=== PATIENT | female | born 1970 | race Caucasian/White ===

== ENCOUNTER 2019-03-27 07:44 | Outpatient (CLI) | payer OTHER, SELFPAY ==
--- NOTE | ~2019-03-27 | MR_ITS ---
EXAMINATION: MR hand RT wo con DATE: 03/27/2019 09:01 INDICATION: Right hand pain. TECHNIQUE: Magnetic resonance imaging (MRI) of the right hand was performed without intravenous contr ast. Sequences included axial, coronal, and sagittal T1-weighted FSE and T2-weighted FS FSE. COMPARISON: Right hand radiographs 02/13/2019 FINDINGS: Bone alignment is normal. No fracture. Increased bone marrow signal intensity in diaphysis of first metacarpal on some sequences is most likely incomplete fat saturation. There is mild osteoar thritis of first interphalangeal joint. The extensor tendons are normal. The flexor tendons and pulle ys are normal. IMPRESSION: 1. Mild osteoarthritis of first interphalangeal joint. Reviewed, dictated and finalized at location A. TY CORONER INVESTIGATOR
== END 2019-03-27 07:45 | disposition home or self-care (01) ==
PROVIDERS: PCP Family Medicine; Visit Provider Orthopaedic Surgery
DX: M79.641 Pain in right hand (principal); M19.041 Primary osteoarthritis, right hand
CPT/HCPCS: 73218

== ENCOUNTER 2019-04-03 06:36 | Outpatient (CLI) | payer OTHER, SELFPAY ==
--- NOTE | ~2019-04-03 | MR_ITS ---
EXAMINATION: MR wrist RT wo con DATE: 04/03/2019 07:52 INDICATION: Right wrist pain. TECHNIQUE: Magnetic resonance imaging (MRI) of the right wrist was performed without intravenous cont rast. Sequences performed include axial PD-weighted FSE and PD-weighted FS FSE, coronal PD-weighted F S FSE and T1-weighted SE, and sagittal PD-weighted FS FSE and PD-weighted FSE. COMPARISON: Right hand radiographs dated 02/13/2019 and right hand MRI dated 03/27/2019 FINDINGS: Intrinsic ligaments: The scapholunate and lunotriquetral ligaments are normal. Triangular fibrocartilage complex (TFCC): Linear increased signal along the proximal surface of the central fiber cartilaginous disc of the tri angular fibrocartilage complex consistent with at least partial tear. More amorphous mild increased s ignal at the dorsal radioulnar ligament and at the ulnar styloid attachment of the triangular fibroca rtilage complex consistent with additional partial tears. The volar radioulnar ligament is normal as is the ulnar triquetral ligament and meniscal homologue. Tear along the ulnar side of the extensor ca rpi ulnaris subsheath allowing palmar subluxation of the extensor carpi ulnaris tendon across the rim of the ECU groove and over the tip of the ulnar styloid process. Extensor wrist: Extensor carpi ulnaris tendon appears normal aside from the previous noted palmar subluxation. The re mainder extensor tendons of the wrist are normal. No tenosynovitis. Flexor wrist: The flexor tendons of the wrist are normal. No abnormality in the carpal tunnel with normal median n erve. Guyon's canal: Guyon's canal including the ulnar nerve and artery are normal. Bones/other: Minimal dorsal subluxation of the ulna at the distal radioulnar joint. Alignment is otherwise normal. Normal marrow signal. No fracture, erosions, avascular necrosis or pathologic marrow replacing proce ss. Mild osteoarthritis at the triscaphe joint with small partial-thickness cartilage loss and chondr al surface regularity along the articular surface of the distal pole of scaphoid. Joint spaces and ca rtilage appear otherwise normal. IMPRESSION: 1. Partial tears of components of the triangular fiber cartilage complex including the ulnar styloid attachment, dorsal radial ulnar ligament and central fiber cartilaginous disc with likely secondary m inimal dorsal subluxation of the ulna at the distal radioulnar joint. 2. Tear of the ulnar side of the extensor carpi ulnaris subsheath allowing volar subluxation of the o therwise normal extensor carpi ulnaris tendon which is draped along the ulnar rim of the ECU groove. 3. Mild osteoarthritis at the triscaphe joint. Reviewed, dictated and finalized at location A. EMENT REQUEST CLERK IMPRESSION: 1. Partial tears of components of the triangular fiber cartilage complex includ ing the ulnar styloid attachment, dorsal radial ulnar ligament and central fibe r cartilaginous disc with likely secondary minimal dorsal subluxation of the ul na at the distal radioulnar joint. 2. Tear of the ulnar side of the extensor carpi ulnaris subsheath allowing vola r subluxation of the otherwise normal extensor carpi ulnaris tendon which is dr aped along the ulnar rim of the ECU groove. 3. Mild osteoarthritis at the triscaphe joint.
== END 2019-04-03 06:37 | disposition home or self-care (01) ==
LOC: ANHIMG 06:42
PROVIDERS: PCP Family Medicine; Visit Provider Orthopaedic Surgery
DX: M19.031 Primary osteoarthritis, right wrist (principal)
CPT/HCPCS: 73221

== ENCOUNTER → 2020-11-30 14:50 | Outpatient (CLI) | payer OTHER, SELFPAY ==
--- NOTE | ~2020-11-30 | MM_ITS ---
EXAMINATION: MM screening [facility] BI [facility] [place] HISTORY: Screening mammogram TECHNIQUE: Craniocaudal and mediolateral oblique 3-D tomosynthesis images were obtained and synthetic 2-D images were generated. CAD analysis was submitted and interpreted. COMPARISON: 07/04/2017, 12/31/2014, 01/03/2014 BREAST PARENCHYMAL COMPOSITION: The breasts are heterogeneously dense, which may obscure small masses . FINDINGS: There is no evidence of suspicious mass, calcification, or architectural distortion to sugg est malignancy in either breast. There has been no suspicious interval change. IMPRESSION: 1. No mammographic evidence of malignancy. 2. Recommend routine screening mammography in one year. BI-RADS Category 1: Negative Reviewed, dictated and finalized at location A.
== END ==
PROVIDERS: PCP Family Medicine; Visit Provider Obstetrics & Gynecology
DX: Z12.31 Encounter for screening mammogram for malignant neoplasm of breast (principal)
CPT/HCPCS: 77063; 77067

== ENCOUNTER 2020-12-28 01:37 | Day surgery (SDC) | payer OTHER, SELFPAY ==
[2020-12-11 13:17] VITALS: BMI 22.6
[2020-12-28 08:07] VITALS: BP 120/99; PULSE 106; RESP 16; TEMP 37.2; O2SAT 100
[2020-12-28] MEDS: LACTATED RINGERS 1,000 ML 150 ML IV CONT (08:08)
--- NOTE | 2020-12-28 08:14 | P.PNAN_ITS ---
Anes - Initial Pre Proc Eval Procedure: Operation Date: 12/28/20 09:15 Proposed Procedures p Screening Colonoscopy - Migue Rodriguez MD Date/Time: 12/28/20 08:14 Surgeon: Migue Rodriguez MD Pre Op Diagnosis: neoplasm screening Patient Data Age: 50 Gender: F Height: 1.57 m Weight: 56.3 kg Last Vital Signs Temp 37.2 C 12/28/20 08:07 Pulse 106 H 12/28/20 08:07 Resp 16 12/28/20 08:07 BP 120/99 H 12/28/20 08:07 Pulse Ox 100 12/28/20 08:07 Allergies Allergy/AdvReac Type Severity Reaction Status Date / Time fluoxetine Allergy Unknown Tremor Verified 12/28/20 08:05 Home Medications Medication Instructions Recorded Confirmed Type norethindrone 1 mg-ethinyl 1 tablet PO DAILY 03/13/19 12/28/20 History estradiol 20 mcg (21)-iron 75 mg (7) tablet multivitamin 1 tablet PO DAILY 03/20/19 12/28/20 History vit C 250 mg-vit E 90 mg-zinc 40 1 tablet PO BID 03/20/19 12/28/20 History mg-copper 1 [id number] capsule Patient hx anesthesia problems: none Family hx anesthesia problems: none Results Review: All pre-operative results and documents have been reviewed as part of the pre-operative evaluation. [facility] [place] Past Medical History Medical History Anxiety H/O supraventricular tachycardia Surgical History Surgical History delivery delivered 03/2002 Chris History of gynecological procedure Ablation, radio frequency 1997 [place] teeth removed 1989 Family History Family History Father Hypertension Family history of coronary artery disease Mother Family history of hypothyroidism Social History Social History Smoking status: Never smoker Second hand tobacco smoke exposure: No Alcohol intake: never Substance use: never Substance use type: does not use Living arrangements: with family Additional living arrangements comments: & Daughter 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 Informed Consent: The patient's anesthetic plan and its attendant risks and benefits were discussed with the patient/family/POA. Questions were solicited and answers provided to the satisfaction of the patient/family/POA.
--- NOTE | 2020-12-28 08:45 | PM.HPGS ---
History of Present Illness History of Present Illness Consent: Risks, benefits, and alternatives have been discussed and questions answered. Patient agrees to proceed with procedure. Chief complaint: neoplasm screening Narrative: Ines Curiel is a 50 year old female here for first screening colonoscopy Review of Systems Constitutional: Constitutional: Denies headache(s) and Denies weakness Eyes: Eyes: Denies blurry vision ENT: Reports Normal hearing present, Denies headache(s) and Denies neck pain Cardiovascular: Cardiovascular: Denies chest pain and Denies dyspnea Respiratory: Respiratory: Denies dyspnea Gastrointestinal: Gastrointestinal: Reports no additional gastrointestinal complaints Genitourinary: Genitourinary: Denies dysuria Musculoskeletal: Musculoskeletal: Denies neck pain Integumentary/Breasts: Skin/Breast: Denies dry skin Neurologic: Reports Normal hearing present, Denies headache(s) and Denies weakness Psychiatric: Psychiatric: Denies anxiety Endocrine: Endocrine: Denies change in body appearance Hematologic/Lymphatic: Hematologic/Lymphatic: Denies easy bleeding Allergic/Immunologic: Allergic/Immunologic: Denies urticaria PMF Past Medical History Medical History (Updated 12/28/20 @ 08:46 by Migue Rodriguez MD) Anxiety Colon cancer screening H/O supraventricular tachycardia Surgical History Surgical History delivery delivered 03/2002 Chris History of gynecological procedure Ablation, radio frequency 1997 [place] teeth removed 1989 Family History Family History Father Hypertension Family history of coronary artery disease Mother Family history of hypothyroidism Social History Social History Smoking status: Never smoker Second hand tobacco smoke exposure: No Alcohol intake: never Substance use: never Substance use type: does not use Living arrangements: with family Additional living arrangements comments: & Daughter 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 Gender identity (if verbalized by the patient): Female Spiritual care concerns: No Meds Home Medications and Allergies Home Medications Medication Instructions Recorded Confirmed Type norethindrone 1 mg-ethinyl 1 tablet PO DAILY 03/13/19 12/28/20 History estradiol 20 mcg (21)-iron 75 mg (7) tablet multivitamin 1 tablet PO DAILY 03/20/19 12/28/20 History vit C 250 mg-vit E 90 mg-zinc 40 1 tablet PO BID 03/20/19 12/28/20 History mg-copper 1 [id number]-mxryhz capsule Allergies Allergy/AdvReac Type Severity Reaction Status Date / Time fluoxetine Allergy Unknown Tremor Verified 12/28/20 08:05 Vital Signs Vital Signs - 24 hr 12/28/20 08:07 Temperature 98.9 F Pulse Rate 106 H Respiratory Rate 16 Blood Pressure 120/99 H Pulse Oximetry 100 Exam Const: General: comfortable and no acute distress HENMT: General nose exam: Normal nares present Eyes: General: appearance normal, both eyes and all related structures Neck: Neck: no JVD Resp: Auscultation: clear to auscultation bilaterally Cardio: Rate: regular rate Rhythm: regular rhythm GI: Inspection: non-distended GI Palp: Yes Soft to palpation Skin: General skin exam: normal color Neuro: General: gait normal Speech: normal speech Extrem: General: normal to inspection Psych: Mental Status: mental status grossly normal Assessment and Plan Assessment and plan (1) Colon cancer screening: Code(s): Z12.11 - Encounter for screening for malignant neoplasm of colon Status: Acute Assessment and Plan: colonoscopy
[2020-12-28 09:05] VITALS: BP 112/65; PULSE 87; RESP 15; O2SAT 99
[2020-12-28 09:15] VITALS: BP 137/84; PULSE 81; RESP 18; O2SAT 100
[2020-12-28 09:25] VITALS: BP 120/69; PULSE 79; RESP 14; O2SAT 100
== END 2020-12-28 09:45 | disposition home or self-care (01) ==
PROVIDERS: PCP Family Medicine; Visit Provider Internal Medicine Gastroenterology
PROC: 0DJD8ZZ Inspection of Lower Intestinal Tract, Via Natural or Artificial Opening Endoscopic (ICD-10-PCS; CPT 45378; principal; 2020-12-28 09:15)
DX: Z12.11 Encounter for screening for malignant neoplasm of colon (principal); K57.30 Diverticulosis of large intestine without perforation or abscess without bleeding; K64.8 Other hemorrhoids; F41.9 Anxiety disorder, unspecified; I47.1 Supraventricular tachycardia
CPT/HCPCS: 45378; J2704; J7120

== ENCOUNTER → 2021-06-16 15:31 | Outpatient (CLI) | payer OTHER, SELFPAY ==
--- NOTE | ~2021-06-16 | XR_ITS ---
EXAMINATION: XR lumbar spine 2-3V DATE: 06/16/2021 15:51 INDICATION: Right-sided low back pain TECHNIQUE: Anteroposterior and lateral views of the lumbar spine, and cone-down lateral view of the l umbosacral junction were obtained. COMPARISON: None. FINDINGS: Bone alignment is normal. There is no fracture. The vertebral body heights and intervertebr al disc spaces are maintained. Small degenerative osteophytes project from the anterior endplates of multiple vertebral bodies. There is a moderate volume of colonic stool. IMPRESSION: 1. No acute osseous abnormality. Reviewed, dictated and finalized at location F.
== END ==
PROVIDERS: PCP Family Medicine; Visit Provider Family Medicine
DX: M54.30 Sciatica, unspecified side (principal)
CPT/HCPCS: 72100

== ENCOUNTER 2021-08-10 00:03 | Day surgery (SDC) | payer OTHER, SELFPAY ==
[2021-08-03 13:08] VITALS: BMI 23.0
--- NOTE | 2021-08-03 13:18 | PC.NURSE ---
Report to the Outpatient Waiting Room, entrance under the green pavilion located off [facility], at time 0600 on date 08/10/21. OR Time: 0730. - You and your visitor will be asked a series of questions to screen for COVID 19 for your protection. - Only one visitor is allowed at this time. - The patient visitor is requested to leave or wait in car when not with patient. - A mask is required within the hospital. Patients may have clear liquids (water, carbonated beverages, clear teas, apple juice) until 3 hours prior to surgery with a maximum of 20 ounces. - No food from midnight until time of surgery Take the following medications with a SIP of water the morning of surgery: LORAZEPAM (IF NEEDED) Medications to discontinue per physician: VITAMINS/SUPPLEMENTS Date to take last dose: 08/06/21 Please no make-up, nail urdu, hairspray, perfume, deodorant, or body powder the day of surgery. No jewelry (including any body piercings) or valuables the day of surgery, leave them at home. Please take a shower or bath the night before, or the morning of, surgery with an antibacterial soap. Wear comfortable, loose fitting clothing. - Jewelry must be removed prior to entering the operating room. Rings and piercings that are not removed may be cut off. - The hospital will not accept responsibility for valuables. - Please leave all valuables, including medications, at home the day of surgery. If you are going home after surgery, a licensed delivery driver/supervisor must drive you home. - NO public transportation without another adult. - We recommend that an adult stay with you for 24 hours following discharge. - We also recommend that you do not drive, make important decision, drink alcoholic beverages, or take any drugs that were not prescribed by your health care provider for at least 24 hours after your discharge time. Follow any additional instructions given to you from your surgeon. If you or anyone in your household have experienced Covid symptoms in the past week, please notify your surgeon or the nurse liaison at the phone number below for possible testing. Telephone instructions given to PT - MARIANNA JONAS and asked if any additional questions and then verbalized understanding. Patient advised to call surgeon office or pre surgery nurse liaison [phone] if any additional questions.
--- NOTE | 2021-08-09 13:11 | P.PNAN_ITS ---
Anes - Initial Pre Proc Eval Procedure: Operation Date: 08/10/21 07:30 Proposed Procedures p Hysteroscopy with Biopsy of Endometrium, Polypectomy - Tree Coulter MD Date/Time: 08/09/21 13:11 Surgeon: Tree Coulter MD Pre Op Diagnosis: Abnormal Uterine Bleeding Patient Data Age: 50 Gender: F Height: 1.6 m Weight: 59 kg Allergies Allergy/AdvReac Type Severity Reaction Status Date / Time fluoxetine AdvReac Unknown Tremor Verified 08/10/21 06:15 Home Medications Medication Instructions Recorded Confirmed Type multivitamin 1 tablet PO DAILY 03/20/19 08/10/21 History vit C 250 mg-vit E 90 mg-zinc 40 1 tablet PO BID 03/20/19 08/10/21 History mg-copper 1 fi-qnukyf-uwrkps capsule (PreserVision AREDS-2) lorazepam 0.5 mg tablet (Ativan) 0.5 mg PO BID PRN anxiety #15 tabs 01/11/21 08/10/21 Rx norethindrone 1.5 mg-ethinyl 1 tablet PO HS 01/11/21 08/10/21 History estradiol 30 mcg(21)/iron 75 mg(7) tablet (Junel FE 1.5/30 (28)) triamcinolone acetonide 55 mcg 1 spray intranasal DAILY 01/11/21 08/10/21 History nasal spray aerosol (Nasacort) Patient hx anesthesia problems: none Family hx anesthesia problems: none Results Review: All pre-operative results and documents have been reviewed as part of the pre- operative evaluation. [facility] Past Medical History Medical History Anxiety Colon cancer screening H/O supraventricular tachycardia Surgical History Surgical History delivery delivered 03/2002 S[place] History of gynecological procedure Ablation, radio frequency 1997 [place] teeth removed 1989 Family History Family History Father Hypertension Family history of coronary artery disease Mother Family history of hypothyroidism Social History Social History Smoking status: Never smoker Second hand tobacco smoke exposure: No Alcohol intake: never Substance use: never Substance use type: does not use Living arrangements: with family Additional living arrangements comments: & Daughter 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 Informed Consent: The patient's anesthetic plan and its attendant risks and benefits were discussed with the patient/family/POA. Questions were solicited and answers provided to the satisfaction of the patient/family/POA.
[2021-08-10 06:09] VITALS: BP 141/76; PULSE 95; RESP 18; TEMP 36.8; O2SAT 100
[2021-08-10] MEDS: LACTATED RINGERS 1,000 ML 30 ML IV CONT ×2 (06:25→09:37)
[2021-08-10] MEDS: ACETAMINOPHEN 500 MG TABLET 1000 MG PO (06:26)
--- NOTE | 2021-08-10 07:10 | WPDHPUPDATE1 ---
History and Physical Update Update Date/Time: 08/10/21 07:10 To insert IUD also during the procedure. History and Physical has been reviewed, including an updated exam of the patient. There are NO changes in the patient's condition. Risks, benefits, and alternatives have been discussed and questions answered. Patient agrees to proceed with procedure.
[2021-08-10 08:21] VITALS: BP 139/82; PULSE 79; RESP 12; O2SAT 100
[2021-08-10] MEDS: fentaNYL CITRATE INJ (*CRX) 100 MCG/2 ML VIAL 25 MCG IV PUSH ×2 (08:40→09:04)
[2021-08-10 08:51] VITALS: BP 140/86; PULSE 82
--- NOTE | 2021-08-10 08:53 | SUR.PHASEII ---
0853- DR. BUSTILLOS TO OUT PT RECOVERY. STATED PT MAY HAVE SOME BLEEDING, PT HAD A FIBROID AND HAD SOME BLEEDING DURING SURGERY. DR. BUSTILLOS SPOKE WITH PT. UPDATED HER ON FINDINGS. VIV PAD CHANGED. PT UP TO RECLINER. DR. BUSTILLOS STATED HE WILL COME SEE HER AFTER HIS NEXT CASE.
[2021-08-10] MEDS: ESTROGENS, CONJUGATED 25 MG/5 ML VIAL IV PUSH (09:15)
[2021-08-10] MEDS: oxyCODONE HCL (*CRX) 5 MG TAB IR PO (09:16)
[2021-08-10 09:21] VITALS: BP 158/84; PULSE 72
--- NOTE | 2021-08-10 09:24 | W.PM.PROC2 ---
Procedure Note - Detailed Date of Procedure 08/10/21 Pre-op Diagnosis Abnormal Uterine Bleeding Post-op Diagnosis Other (Submucous fibroid) Procedure Performed Hysteroscopy D&C, IUD placement Surgeon Tree Coulter MD Anesthesia MAC Indications abnormal uterine bleeding Findings 2 cm submucous fibroid., normal vulva, vagina and cervix. Description of Procedure the patient was taken the operating room. She was prepped and draped in the dorsal lithotomy position after induction of mac anesthesia. A speculum was placed in the vagina. The cervix was grasped with a tenaculum. The cervix was dilated about 1 cm. The hysteroscope was inserted. The intrauterine cavity and endocervix were evaluated. Hysteroscope was withdrawn. A medium-size curette was used to curettage all the surfaces were within the endometrial cavity. the sample was collected on Telfa and sent to pathology. Bleeding began. Her bleeding persisted. The cervix is very soft and there was a tear on the cervix. Sutures were placed there but the bleeding was coming from inside the uterus. It persisted. To manage medically. The IUD was inserted in the usual fashion using a IUD applicator. It was placed at the uterine fundus. Hysteroscope was inserted and was well placed beyond the fibroid. Hysteroscope was removed, the speculum was removed. Tenaculum was removed. The hysteroscope was reinserted and the above findings were noted. Patient tolerated the procedure well. The speculum and tenaculum were removed. She was taken recovery room in stable condition. Sponge lap and needle counts were correct x2. Estimated Blood Loss 250 Drains No Packing No Pathology Yes Complications No immediate complications Condition Stable Disposition PACU
[2021-08-10] MEDS: TRANEXAMIC ACID 1,000MG/ISO100 1,000 MG/100 ML BAG 200 MG IVPB (09:37)
[2021-08-10 09:51] VITALS: BP 155/77; PULSE 70
[2021-08-10] MEDS: ONDANSETRON INJ 4 MG/2 ML VIAL IV PUSH (10:01)
[2021-08-10 10:21] VITALS: BP 140/86; PULSE 67
== END 2021-08-10 10:35 | disposition home or self-care (01) ==
PROVIDERS: PCP Family Medicine; Visit Provider Obstetrics & Gynecology
PROC: 0U5B8ZZ Destruction of Endometrium, Via Natural or Artificial Opening Endoscopic (ICD-10-PCS; CPT 58563; principal; 2021-08-10 07:30)
DX: N93.9 Abnormal uterine and vaginal bleeding, unspecified (principal); N99.71 Accidental puncture and laceration of a genitourinary system organ or structure during a genitourinary system procedure; D25.0 Submucous leiomyoma of uterus; Z30.430 Encounter for insertion of intrauterine contraceptive device; N88.8 Other specified noninflammatory disorders of cervix uteri; F41.9 Anxiety disorder, unspecified
CPT/HCPCS: 58558; 58300; 57720; 88305; A9270; J1410; J2250; J2405; J2704; J3010; J7030; J7120

== ENCOUNTER → 2022-04-18 15:28 | Outpatient (CLI) | payer OTHER, SELFPAY ==
--- NOTE | ~2022-04-18 | MM_ITS ---
EXAMINATION: MM screening [facility] [place] HISTORY: Screening mammogram TECHNIQUE: Craniocaudal and mediolateral oblique 3-D tomosynthesis images were obtained and synthetic 2-D images were generated. CAD analysis was submitted and interpreted. COMPARISON: 11/2020, 07/14/2017, 12/2014 bilateral screening mammogram examinations BREAST PARENCHYMAL COMPOSITION: The breasts are heterogeneously dense, which may obscure small masses . FINDINGS: There is no evidence of suspicious mass, calcification, or architectural distortion to sugg est malignancy in either breast. There has been no suspicious interval change. IMPRESSION: 1. No mammographic evidence of malignancy. 2. Recommend routine screening mammography in one year. BI-RADS Category 1: Negative Reviewed, dictated and finalized at location A. NDANT COIN OPERATED LAUNDRY
== END ==
PROVIDERS: PCP Family Medicine; Visit Provider Advanced Practice Midwife
DX: Z12.31 Encounter for screening mammogram for malignant neoplasm of breast (principal)
CPT/HCPCS: 77063; 77067

== ENCOUNTER → 2022-04-28 14:27 | Outpatient (CLI) | payer OTHER, SELFPAY ==
--- NOTE | ~2022-04-28 | XR_ITS ---
EXAMINATION: XR hip LT min 3V w AP pelvis INDICATION: Left hip pain TECHNIQUE: AP view of the pelvis and two views of the left hip are obtained. COMPARISON: None available FINDINGS: Bone alignment is normal. There is no fracture. Phleboliths are noted in the pelvis. An IUD is seen. IMPRESSION: 1. No acute osseous abnormality. Reviewed, dictated and finalized at location F. RWORKS OPERATOR
== END ==
PROVIDERS: PCP Family Medicine; Visit Provider Physician Assistant
DX: M25.552 Pain in left hip (principal)
CPT/HCPCS: 73502

== ENCOUNTER 2022-07-04 17:53 | Emergency (ER) | payer OTHER, SELFPAY ==
[2022-07-04 17:51] VITALS: BP 163/83; PULSE 91; RESP 18; TEMP 36.1; O2SAT 100
--- NOTE | 2022-07-04 18:00 | ED.BACK ---
HPI - Back Pain/Injury General Chief Complaint: Back Pain/Injury Stated Complaint: LBP, UNABLE TO SIT UP History of Present Illness HPI Narrative: Patient is a 51-year-old female here for evaluation of atraumatic low back pain x1 day. Patient states that she first noticed a soreness in her low back when she woke up this morning. It was sore throughout the day, worse with certain positions and when she was walking. She got home and took a Tylenol states has not improved her pain. The pain acutely worsened she was unable to sit up or walk due to pain. This prompted her to call an ambulance. She denies any numbness, tingling, weakness, urinary changes, bowel changes. History of previous similar sensation in the past that was treated by her primary care doctor. Related Data Home Medications Medication Instructions Recorded Confirmed multivitamin 1 tablet PO DAILY 03/20/19 06/02/22 vit C 250 mg-vit E 90 mg-zinc 40 1 tablet PO BID 03/20/19 06/02/22 mg-copper 1 fc-gokker-dnxsbg capsule (PreserVision AREDS-2) triamcinolone acetonide 55 mcg 1 spray intranasal DAILY 01/11/21 06/02/22 nasal spray aerosol (Nasacort) levonorgestrel 21 mcg/24 hours (8 1 device intrauterine ONCE 06/02/22 06/02/22 yrs) 52 mg intrauterine device (Mirena) naproxen sodium 220 mg capsule 220 mg PO BID PRN 06/02/22 06/02/22 (Aleve) Allergies Allergy/AdvReac Type Severity Reaction Status Date / Time fluoxetine AdvReac Unknown Tremor Verified 06/02/22 07:28 Review of Systems Review of Systems: Gen: Denies fevers or chills Eyes: Denies eye pain or visual change ENT: Denies congestion Respiratory: Denies shortness of breath or cough CV: Denies chest pain or palpitations GI: Denies abdominal pain nausea, emesis or diarrhea : denies burning, urgency, frequency or hematuria Musculoskeletal: Reports back pain Neuro: Denies numbness, tingling, weakness or focal weakness Skin: Denies rash Except as documented, all other systems reviewed and negative PMFSH Past Medical History Medical History Anxiety Colon cancer screening H/O supraventricular tachycardia Surgical History Surgical History delivery delivered 03/2002 Chris History of gynecological procedure Ablation, radio frequency 1997 [place] teeth removed 1989 Family History Family History Father Hypertension Family history of coronary artery disease Mother Family history of hypothyroidism Social History Social History Smoking status: Never smoker Second hand tobacco smoke exposure: No Alcohol intake: never Substance use: never Substance use type: does not use Living arrangements: with family Additional living arrangements comments: & Daughter Occupation/Education: occupation 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 Head: Normocephalic and atraumatic. EYES: PERRLA/EOMI, conjunctivae clear NOSE: No nasal drainage EARS: External ear normal in appearance THROAT: Oropharynx is clear. Mucous membranes are moist. NECK: Supple. No adenopathy, no masses. RESPIRATORY: Airway patent, respirations nonlabored. Clear to auscultation bilaterally, no rales, rhonchi, wheezing. CARDIOVASCULAR: Regular rate and rhythm without murmurs, rubs, or gallops. ABDOMINAL: Normoactive bowel sounds. Soft, nontender, nondistended. No rebound tenderness or guarding. MUSCULOSKELETAL: There is no midline tenderness to the C, T or L-spine. Extremities are warm and well-perfused. Moves all extremities well. No edema. Straight leg raise is positive
[2022-07-04] MEDS: KETOROLAC 30 MG/ML VIAL (*BKC) IM (18:07)
[2022-07-04] MEDS: CYCLOBENZAPRINE HCL 5 MG TABLET PO (18:07)
[2022-07-04] MEDS: LIDOCAINE 5% PATCH 1 PATCH TRANSDERM (18:07)
[2022-07-04] MEDS: HYDROcodone/acetaminophen (*CRX) 5-325 MG TABLET 1 TAB PO (19:01)
[2022-07-04 19:55] VITALS: BP 149/87; PULSE 87; RESP 17; O2SAT 95
== END 2022-07-04 19:55 | disposition home or self-care (01) ==
PROVIDERS: Emergency Provider Physician Assistant; PCP Family Medicine
DX: M54.41 Lumbago with sciatica, right side (principal); F41.9 Anxiety disorder, unspecified
CPT/HCPCS: 96372; 99284; A9270; J1100; J1885

== ENCOUNTER → 2022-07-15 07:39 | Outpatient (CLI) | payer OTHER, SELFPAY ==
--- NOTE | ~2022-07-15 | MR_ITS ---
EXAMINATION: MR lumbar spine wo con DATE: 07/15/2022 08:11 INDICATION: Low back pain, unspecified. Left hip pain. TECHNIQUE: Magnetic resonance imaging (MRI) of the lumbar spine was performed without intravenous con trast. Sequences included sagittal T2-weighted FSE, sagittal T2-weighted FS FSE, sagittal T1-weighted FSE, and axial T2-weighted FSE. COMPARISON: Lumbar spine radiographs 06/16/2021 FINDINGS: There is 8 degrees levocurvature of lumbar spine. There is mild chronic anterior wedging of L4 vertebral body. There is mildly decreased disc height at L3-L4 and L4-L5 and severely decreased d isc height at L5-S1. The distal spinal cord signal intensity is normal. The conus medullaris is at L1 -L2. The following disc levels are specifically discussed: L1-L2: The disc does not extend beyond the endplate margin. There is mild bilateral facet joint osteo arthritis. There is no neural foraminal stenosis. There is no central canal stenosis. L2-L3: The disc does not extend beyond the endplate margin. There is mild bilateral facet joint osteo arthritis. There is no neural foraminal stenosis. There is no central canal stenosis. L3-L4: The disc is mildly bulging. There is moderate bilateral facet joint osteoarthritis. There is n o neural foraminal stenosis. There is mild central canal stenosis. L4-L5: The disc is bulging with mass effect on the right L5 nerve root in right lateral recess. There is no facet joint osteoarthritis. There is mild bilateral neural foraminal stenosis. There is mild c entral canal stenosis. There is moderate stenosis of right lateral recess. L5-S1: The disc is bulging with superimposed central extrusion. There is mild bilateral facet joint o steoarthritis. There is mild bilateral neural foraminal stenosis. There is mild central canal stenosi s. IMPRESSION: 1. Severe lower lumbar spondylosis. Reviewed, dictated and finalized at location A.
== END ==
PROVIDERS: PCP Family Medicine; Visit Provider Orthopaedic Surgery
DX: M47.896 Other spondylosis, lumbar region (principal)
CPT/HCPCS: 72148

== ENCOUNTER → 2023-01-06 07:05 | Outpatient (CLI) | payer OTHER, SELFPAY ==
--- NOTE | ~2023-01-06 | XR_ITS ---
EXAMINATION: XR lumbar spine min 4V DATE: 01/06/2023 07:53 INDICATION: Lumbar spondylosis, low back pain TECHNIQUE: Anteroposterior and lateral in neutral, flexion and extension views of the lumbar spine, a nd cone-down lateral view of the lumbosacral junction were obtained. COMPARISON: 06/16/2021 FINDINGS: Bone alignment is normal. There is no fracture. There is no hypermobility with flexion or e xtension. There is severe loss of intervertebral disc space height at L5-S1 and moderate loss of inte rvertebral disc space height at L4-5. There is mild anterior wedging the L4 vertebral body. The verte bral body heights are otherwise maintained. There is no fracture. There is moderate facet joint osteo arthritis. IMPRESSION: 1. Moderate to severe lumbar spondylosis without acute findings. Reviewed, dictated and finalized at location B. ING STAFFING COORDINATOR
== END ==
PROVIDERS: PCP Family Medicine; Visit Provider Physician Assistant
DX: M43.06 Spondylolysis, lumbar region (principal); M47.816 Spondylosis without myelopathy or radiculopathy, lumbar region
CPT/HCPCS: 72110

== ENCOUNTER 2023-05-26 14:28 | Outpatient (CLI) | payer OTHER, SELFPAY ==
--- NOTE | ~2023-05-26 | CT_ITS ---
EXAMINATION: CT pelvis wo con DATE: 05/26/2023 14:45 INDICATION: Sacrococcygeal disorders, not elsewhere classified. Left sacroiliac joint pain. TECHNIQUE: Computed tomography (CT) of the pelvis was performed without intravenous contrast. Automat ed exposure control and iterative reconstruction technique were employed. The dose-length product was 251.88 mGy-cm. COMPARISON: Pelvis radiograph 04/28/2022 FINDINGS: There are no dilated loops of bowel. The appendix is normal. There is an intrauterine devic e in expected position. There are no pathologically enlarged lymph nodes. There is no free intraperit hill fluid. Bone alignment is normal. No fracture. There is mild osteoarthritis of the sacroiliac russel ints and hip joints. There is severe lower lumbar spondylosis. IMPRESSION: 1. Mild osteoarthritis of the sacroiliac joints. Reviewed, dictated and finalized at location E.
== END 2023-05-26 14:29 ==
LOC: MICIMG 14:29
PROVIDERS: PCP Family Medicine; Visit Provider Nurse Practitioner Family
DX: M53.3 Sacrococcygeal disorders, not elsewhere classified (principal)
CPT/HCPCS: 72192